=== PATIENT | male | born 1950 | race Caucasian/White ===

== ENCOUNTER 2022-10-25 08:33 | Day surgery (SDC) | payer OTHER, BC ==
[2022-10-19 14:52] VITALS: BMI 41.4
[2022-10-25] MEDS ORDERED: PROPOFOL 120 ML ONE (10:16)
[2022-10-25] MEDS ORDERED: LIDOCAINE HCL/PF 2% SDV 5ML VIAL ONE (10:16)
[2022-10-25 11:00] VITALS: RESP 18; TEMP 98
[2022-10-25 11:14] VITALS: BP 107/50; PULSE 67
== END 2022-10-25 11:26 | disposition home or self-care (01) ==
LOC: FASU-ENDO 08:33
PROVIDERS: ATTEND Internal Medicine Gastroenterology
PROC: 0DBL8ZX Excision of Transverse Colon, Via Natural or Artificial Opening Endoscopic, Diagnostic (ICD-10-PCS; principal; 2022-10-25 10:18)
DX: Z12.11 Encounter for screening for malignant neoplasm of colon (principal); D12.3 Benign neoplasm of transverse colon; K64.1 Second degree hemorrhoids; K64.8 Other hemorrhoids; K57.30 Diverticulosis of large intestine without perforation or abscess without bleeding; Z86.010 Personal history of colon polyps
CPT/HCPCS: 88305-TC